=== PATIENT | female | born 1965 | race Caucasian/White ===

== ENCOUNTER 2019-12-01 07:30 | Outpatient (CLI) | payer MEDICARE, MEDICAID ==
[~2019-12-01] VITALS: Wt 68.4 kg
--- NOTE | 2019-12-01 07:15 | NUR ---
REPORTED TO YARELI NICOLE PER PT HEART RATE OBSERVED FROM MID 70S TO 120S AT TIMES AT REST DURING PREOP PREP.REPORTED TO BONNIE THAT PT STATES SHE ATE PANCAKES AT 5AM.PER SON REPORT SHE ATE LAST AT 6PM THE NIGHT PRIOR NOT THIS MORNING.ALSO PER SON HER LAST DOSE OF MEDICATIONS WERE AT 1700 SUNDAY EVENING.
[2019-12-01 08:00] VITALS: BP 105/71; PULSE 66; TEMP 97.5
--- NOTE | 2019-12-01 09:39 | NUR ---
pER LAB THEY HAVE THE BLOOD SMPLES NEEDED TO COMPLETE TEST.int REMOVED,CATHETER TIP INTACT.PT DISCHARGED AMBULATORY.
[2019-12-01] MEDS ORDERED: SYNTHROID0.05 MG/TA PO (09:47)
[2019-12-01] MEDS ORDERED: PRIL40 PO (09:48)
[2019-12-01] MEDS ORDERED: ADASUVE10 MG IH (09:48)
[2019-12-01] MEDS ORDERED: LIPITOR 80MG80 MG PO (09:49)
[2019-12-01] MEDS ORDERED: IMDUR 60MG60 MG/TAB PO (09:49)
[2019-12-01] MEDS ORDERED: TOPROL XL 50MG50 MG PO (09:49)
[2019-12-01] MEDS ORDERED: RANEXA1000 MG PO (09:51)
[2019-12-01] MEDS ORDERED: BRILINTA90 MG PO (09:51)
[2019-12-01] MEDS ORDERED: NITROSTAT0.4 MG/TAB SL (09:51)
[2019-12-01] MEDS ORDERED: ZANAFLEX CAPSULE4 MG PO (09:52)
[2019-12-01] MEDS ORDERED: XALATAN EYE DROPS OD (09:52)
[2019-12-03 19:46] LABS: ADRENOCORTICOTROPIC HORMONE 9 pg/mL (5-27)
== END 2019-12-01 09:46 | disposition home or self-care (01) ==
LOC: EUO 07:30
PROVIDERS: Internal Medicine Interventional Cardiology
DX: I95.2 Hypotension due to drugs (principal)
CPT/HCPCS: J0834